=== PATIENT | male | born 1965 | race Caucasian/White ===

== ENCOUNTER 2020-07-08 14:08 | Emergency (ER) | payer BC, OTHER | END 2020-07-08 16:01 | disposition home or self-care (01) | LOC: JVIRT 14:08 | DX: U07.1 COVID-19 (principal) | CPT/HCPCS: C9803; Q3014-GT; U0003 ==

== ENCOUNTER 2021-09-03 22:41 | Emergency (ER) | payer BC ==
[2021-09-03 22:48] VITALS: BP 129/90; PULSE 104; TEMP 99; BMI 30.8
== END 2021-09-04 01:07 | disposition home or self-care (01) ==
LOC: FER 22:41
DX: S02.32XA Fracture of orbital floor, left side, initial encounter for closed fracture (principal); S00.81XA Abrasion of other part of head, initial encounter; W01.0XXA Fall on same level from slipping, tripping and stumbling without subsequent striking against object, initial encounter
CPT/HCPCS: 70450-TC; 70486-TC; 72125-TC; 99285-25

== ENCOUNTER 2021-11-08 22:44 | Emergency (ER) | payer OTHER | END 2021-11-08 23:29 | disposition home or self-care (01) | LOC: FER 22:44 | DX: R55 Syncope and collapse (principal) | CPT/HCPCS: 99281-25 ==